=== PATIENT | female | born 1960 ===

== ENCOUNTER 2021-03-27 14:06 | Inpatient (IN) | payer OTHER ==
[~2021-03-27 14:06] MED LIST: ADULT LOW DOSE81 M1 PO; COZAAR50 MG PO; FLUTIC; HYDROCHLOROTHIA25 MG PO; NORVASC2.5 MG PO; TERAZOSIN HCL2 M1 PO; TIMOL 0.5%-BRIM10 ML
[2021-03-27] MEDS ORDERED: MIRALAX17 GM PO (19:17)
[2021-03-27] MEDS ORDERED: NEURONTIN300 MG PO (19:17)
[2021-03-27] MEDS ORDERED: TYLENOL ARTHRI650 MG PO (19:17)
[2021-03-27] MEDS ORDERED: PEPCID AC20 MG PO (19:17)
[2021-03-27] MEDS ORDERED: KETO10TA2 PO (19:17)
[2021-03-28] MEDS ORDERED: ULTRAM50 MG PO (05:15)
== END 2021-03-28 12:56 | disposition home or self-care (01) | DRG 355 ==
LOC: CIR.AMB 14:06 → SURH 20:57
PROVIDERS: ADMIT Surgery; ATTEND Surgery
PROC: 0WUF4JZ Supplement Abdominal Wall with Synthetic Substitute, Percutaneous Endoscopic Approach (ICD-10-PCS; principal; 2021-03-27 07:00)
PROC: 0KX10Z1 Transfer Facial Muscle with Subcutaneous Tissue, Open Approach (ICD-10-PCS; 2021-03-27 07:00)
DX: K43.6 Other and unspecified ventral hernia with obstruction, without gangrene (principal); K42.0 Umbilical hernia with obstruction, without gangrene; Z20.822 Contact with and (suspected) exposure to COVID-19